=== PATIENT | male | born 1980 ===

== ENCOUNTER 2017-03-06 03:35 | Observation (INO) | payer OTHER ==
[2017-03-06] VITALS (13 sets, daily range): BP systolic 111–125; BP diastolic 63–77; PULSE 51–86; TEMP 97.4–98.7
--- NOTE | 2017-03-06 06:00 | NUR ---
Received patient from EMS at 0440 and transferred into room 324. Admission and assessment completed. Patient is A&O x 4. C/O abdominal pain that is relieved by IV dilaudid. IVF infusing to left antecubital per orders. Patient is NPO at this time. Bed is in a low position with call light in reach.
--- NOTE | 2017-03-06 09:00 | NUR ---
Drowsy. No c/o pain or nausea. NPO. IV fluids infusing.
--- NOTE | 2017-03-06 10:30 | NUR ---
Dr. Regan saw patient. Surgical consent signed.
--- NOTE | 2017-03-06 16:15 | NUR ---
No complaints. To surgery per bed.
--- NOTE | 2017-03-06 16:19 | NUR ---
SW attempted to meet with patient, he is being taken down for surgery at this time.
--- NOTE | 2017-03-06 18:30 | NUR ---
Received patient from PACU per bed. Drowsy, alert. VSS. [place] CDI x 4 to abdomen. Complained of increasing incisional pain in abdomen. Medicated with IV Morphine. Spouse at bedside.
--- NOTE | 2017-03-06 19:30 | NUR ---
PT RESTING IN BED. STATES RUQ PAIN 4/10 BUT ACCEPTABLE LEVEL FOR HIM. PLACED PT ON 2L 02 VIA NC TO MAINTAIN O2 SAT 93%. PT IS BEDSIDE. POST OP VITALS ARE WNL. BED IN LOW POSITION. CALL LIGHT WITHIN REACH
[2017-03-07 02:45] VITALS: BP 118/63; PULSE 75; TEMP 98
[2017-03-07 05:41] VITALS: BP 125/64; PULSE 72; TEMP 97.8
--- NOTE | 2017-03-07 06:39 | NUR ---
PT STATES PAIN LEVEL REMAINS A 5/10 AFTER 2 TABS OF NORCO 7.5, PT AWARE HE CAN NOT GO HOME ON IV MEDICATION THEREFORE WANTS TO STICK WITH PO ONLY. PT SLEPT QUIETLY THROUGHOUT THE NIGHT AND COMPLAINED OF PAIN WHEN WAKENED FOR VITAL SIGNS. 4 LAP SITES WITH BANDAIDS ARE C/D/I BEDSIDE. CALL LIGHT IN REACH. BED IN LOW POSITION
[2017-03-07 10:45] VITALS: BP 111/65; PULSE 81; TEMP 98.2
--- NOTE | 2017-03-07 10:45 | NUR ---
No c/o incisional pain. VSS. Taking po fluids well. Independent in room.
--- NOTE | 2017-03-07 12:55 | NUR ---
Medicated with [place] per request for incisional pain. Prescription given. Dismissed to home with spouse.
== END 2017-03-07 12:55 | disposition home or self-care (01) ==
LOC: SURG 03:35
PROVIDERS: ADMIT Surgery
DX: K80.10 Calculus of gallbladder with chronic cholecystitis without obstruction (principal); F17.210 Nicotine dependence, cigarettes, uncomplicated; Z87.442 Personal history of urinary calculi
CPT/HCPCS: G0378; J0690; J1100; J1170; J1885; J2270; J2405; J2704; J2710; J3010; J7030; J7120